=== PATIENT | male | born 1975 | race Caucasian/White ===

== ENCOUNTER 2021-02-07 13:30 | Emergency (ER) | payer SELFPAY ==
--- NOTE | ~2021-02-07 | XR_ITS ---
XR abdomen/kub 1V DATE: 02/07/2021 14:31 INDICATION: Left flank pain, distal left ureteral approximately 3 mm calculus TECHNIQUE: AP projection 2 views COMPARISON: 02/07/[address] abdomen pelvis FINDINGS: There is a subtle linear appearing calcification overlying the distal left ureter correspon ding to the distal left ureteral calculus documented on 02/07/[address] abdomen pelvis examin ation. Left nephromegaly. The psoas shadows are intact. No evidence of bowel obstruction. IMPRESSION: Distal left ureteral calcified calculus Reviewed, dictated and finalized at [facility] Reviewed, dictated and finalized at [facility].
--- NOTE | ~2021-02-07 | CT_ITS ---
EXAMINATION: CT abdomen pelvis wo con DATE: 02/07/2021 14:38 INDICATION: Right flank pain TECHNIQUE: Computed tomography (CT) of the abdomen and pelvis was performed without intravenous contr ast. Automated exposure control and iterative reconstruction technique were employed. Exam dose: 170 .33 mGy-cm total exam DLP. COMPARISON: November 27, [address] abdomen pelvis FINDINGS: Minimal focal atelectasis or scarring at the lung bases. Normal heart size. No pericardial or pleural effusion. Small sliding hiatal hernia. The liver, gallbladder, bile ducts, spleen, pancreas and pancreatic duct as well as adrenal glands ap pear normal. Right kidney appears normal. No right urinary tract calculus or hydroureteronephrosis. There is left nephromegaly and perinephric stranding and mild left hydroureteronephrosis due to an ap proximately 3 mm distal left ureteral calculus. Normal caliber of the abdominal aorta. No intraperitoneal or retroperitoneal or pelvic mass lesion or adenopathy or ascites. Normal appendix. No bowel obstruction, bowel wall thickening, pneumatosis or intraperitoneal free air . No suspicious osteolytic or osteoblastic lesions. IMPRESSION: 3 mm distal left ureteral calculus wit h mild left hydroureteronephrosis, mild perinephric stranding Reviewed, dictated and finalized at [facility] Reviewed, dictated and finalized at [facility].
[2021-02-07 13:37] VITALS: BP 143/90; PULSE 57; RESP 16; TEMP 36.2; O2SAT 98
[2021-02-07 13:57] LABS: Basophils Absolute Auto 0.1 K/mm3 (0.0-0.1); Basophils Percent Auto 0.4 % (0.2-1.2); Eosinophils Percent Auto 0.3 % (0-4.4); Hemoglobin 15.7 g/dL (14.0-18.0); Immature Granulocyte Absolute 0.04 K/mm3 (0.00-0.031); Immature Granulocyte Percent A 0.3 % (0-0.5); Lymphocytes Absolute Auto 1.31 K/mm3 (0.9-3.2); Lymphocytes Percent Auto 8.3 % (18.3-44.2); Mean Corpuscular HGB Conc 34.9 g/dl (32-36); Mean Corpuscular Hemoglobin 29.2 pg (26-34); Mean Corpuscular Volume 83.8 fl (80-100); Mean Platelet Volume 8.9 fl (7.4-10.4); Monocytes Percent Auto 6.2 % (2.6-8.5); Neutrophils Absolute Auto 13.4 K/mm3 (1.3-6.7); Neutrophils Percent Auto 84.5 % (45.5-73.1); Platelet Count Result 333 k/mm3 (150-375); Red Blood Count 5.37 M/mm3 (4.6-6.20); Red Cell Distribution Width 13.2 % (11.5-14.5); White Blood Count 15.8 K/mm3 (4.5-10.0)
[2021-02-07 14:07] LABS: Anion Gap 12 mmol/L (8-16); Blood Urea Nitrogen 12 mg/dL (9-20); Calcium 9.6 mg/dL (8.4-10.2); Carbon Dioxide 22 mmol/L (22-30); Chloride 108 mmol/L (98-107); Estimated CRCL calculation 74 ml/min; Estimated Glomerular Filt Rate > 60; Glucose 97 mg/dL (75-110); Potassium 3.5 mmol/L (3.4-5.0); Sodium 142 mmol/L (137-145)
[2021-02-07 14:13] LABS: Add Urine Microscopic? YES; Appearance Urine Clear (Clear); Bacteria Urine Trace /hpf; Bilirubin Urine Negative (Negative); Blood Urine Negative (Negative); Color Urine Yellow (Yellow); Glucose Urine UA Negative (Negative); Ketones Urine 2+ mg/dL (Negative); Leukocyte Esterase Ur Negative LEU/UL (Negative); Mucus Urine Rare /lpf; Nitrate Urine Negative (Negative); Protein Urine 2+ mg/dL (Negative); Specific Grav Ur 1.025 (1.001-1.035); Squamous Epithelial Cell Urine Rare /hpf (Few); Urobilinogen Urine Negative mg/dL (<2.0); WBC Urine 0-3 /hpf
[2021-02-07] MEDS: LACTATED RINGERS 1,000 ML 999 ML IV CONT (14:34)
[2021-02-07] MEDS: ONDANSETRON INJ 4 MG/2 ML VIAL IV PUSH (14:34)
--- NOTE | 2021-02-07 14:47 | ED.ABDPAIN ---
HPI - Abdominal Pain General Chief Complaint: Abdominal Pain Stated Complaint: kidney stones Time Seen by Provider: 02/07/21 13:46 Source: patient Mode of arrival: ambulatory Limitations: no limitations History of Present Illness HPI narrative: This is a 45 year old male with history of kidney stones who presents for evaluation of left lower abdominal pain. He states he developed pain to his left lower back and left lower abdomen 1 week ago. He states his pain has been intermittent. He noticed over the past couple of days his pain has been remaining in his left lower abdomen, and he is having nausea and vomiting. He has been taking naproxen for his pain. He denies having pain currently. He also denies urinary symptoms. Related Data Allergies Allergy/AdvReac Type Severity Reaction Status Date / Time No Known Allergies Allergy Verified 02/07/21 13:41 Review of Systems Review of Systems: All systems reviewed & are unremarkable except as noted in HPI and below PMFSH Past Medical History Medical History (Updated 02/07/21 @ 16:07 by Tanvi Plaza MD) History of eye prosthesis Kidney stones Surgical History Surgical History (Updated 02/07/21 @ 15:00 by Tanvi Plaza MD) No pertinent past surgical history Social History Social History (Updated 02/07/21 @ 15:00 by Tanvi Plaza MD) Smoking status: Current every day smoker Gender identity (if verbalized by the patient): Female Exam Const: General: no acute distress and alert Orientation/consciousness: patient oriented x3 Neck: Neck: normal visual inspection Resp: Effort & Inspection: normal respiratory effort and no retractions Auscultation: clear to auscultation bilaterally Cardio: Rate: regular rate Rhythm: regular rhythm Heart sounds: no murmurs GI: GI Palp: Yes Soft to palpation, No Tenderness to palpation present (GI) and No Guarding due to palpation present (GI) Auscultation: normal bowel sounds Skin: General skin exam: normal color Neuro: General: patient oriented x3, moves all extremities and CN's II-XI intact bilaterally Psych: Mental Status: mental status grossly normal Affect: normal affect Course Reevaluation(s) Reevaluation #1: I Discussed with patient that he found to have 3 mm stone that is distal. He will follow up with urologist as outpatient. He has no pain. Date: 05/01/21 Time: 16:04 Vital Signs Vital signs: Vital Signs Temperature 97.2 F L 02/07/21 13:37 Pulse Rate 57 L 02/07/21 13:37 Respiratory Rate 16 02/07/21 13:37 Blood Pressure 143/90 H 02/07/21 13:37 Pulse Oximetry 98 02/07/21 13:37 Temperature 97.2 F L 02/07/21 13:37 Pulse Rate 84 02/07/21 16:28 Respiratory Rate 16 02/07/21 16:28 Blood Pressure 142/84 H 02/07/21 16:28 Pulse Oximetry 98 02/07/21 16:28 MDM - Abdominal Pain Medical Records Attestation: I reviewed the patient's medical records. Lab Data Attestation: I reviewed the patient's lab results. Result diagrams: 02/07/21 13:53 02/07/21 13:53 Labs: Lab Results 02/07/21 02/07/21 02/07/21 Range/Units 13:53 13:53 13:59 WBC 15.8 H (4.5-10.0) K/mm3 RBC 5.37 (4.6-6.20) M/mm3 Hgb 15.7 (14.0-18.0) g/dL Hct 45.0 (42.0-52.0) % MCV 83.8 (80-100) fl MCH 29.2 (26-34) pg MCHC 34.9 (32-36) g/dl RDW 13.2 (11.5-14.5) % Plt Count 333 (150-375) k/mm3 MPV 8.9 (7.4-10.4) fl Immature Gran % (Auto) 0.3 (0-0.5) % Neut % (Auto) 84.5 H (45.5-73.1) % Lymph % (Auto) 8.3 L (18.3-44.2) % [place] % (Auto) 6.2 (2.6-8.5) % Eos % (Auto) 0.3 (0-4.4) % Baso % (Auto) 0.4 (0.2-1.2) % Lymph # (Auto) 1.31 (0.9-3.2) K/mm3 [place] # (Auto) 1.0 H (0.1-0.6) K/mm3 Eos # (Auto) 0.0 (0-0.3) K/mm3 Baso # (Auto) 0.1 (0.0-0.1) K/mm3 Abs Immat Gran (auto) 0.04 H (0.00-0.031) K/mm3 Absolute Neuts (auto) 13.4 H (1.3-6.7) K/mm3 Absolute Nucleated RBC
[2021-02-07] MEDS: TAMSULOSIN HCL 0.4 MG CAPSULE PO (15:16)
[2021-02-07 16:28] VITALS: BP 142/84; PULSE 84; RESP 16; O2SAT 98
== END 2021-02-07 16:29 | disposition home or self-care (01) ==
PROVIDERS: Family Medicine; Emergency Provider General Practice
DX: N13.2 Hydronephrosis with renal and ureteral calculous obstruction (principal); Z87.442 Personal history of urinary calculi
CPT/HCPCS: 36415; 74018; 74176; 80048; 81001; 85025; 96374; 99284; A9270; J2405; J7120

== ENCOUNTER 2021-09-18 08:11 | Emergency (ER) | payer SELFPAY ==
[2021-09-18 08:24] VITALS: BP 118/80; PULSE 92; RESP 16; TEMP 36.2; O2SAT 99
--- NOTE | 2021-09-18 08:58 | ED.GENADULT ---
HPI - General Adult General Chief complaint: Urogenital-Male Stated complaint: uti Source: patient Mode of arrival: ambulatory Limitations: no limitations History of Present Illness HPI narrative: Patient is a 45-year-old male who presents to the [facility] via POV for evaluation of penile drainage that has been present for 2 days. Additionally, he reports dysuria, and yellow thick, malodorous drainage. He states he has had 1 sexual partner over the past 3 months. He states he has 1 sexual partner. Denies wearing condoms with sexual activity. Denies taking OTC meds for symptoms. Nothing improves symptoms in urinating worsens symptoms. History of gonorrhea. Today symptoms are identical to previous infection. Last episode of gonorrhea was 2 years ago. Related Data Allergies Allergy/AdvReac Type Severity Reaction Status Date / Time No Known Allergies Allergy Verified 09/18/21 08:33 Review of Systems Review of Systems: pertinent negatives: fever, chills, sweats, change in appetite, poor p.o. intake, recent weight loss/gain, back pain, flank pain, hematuria, urinary frequency, urinary urgency, skin rash, rash on testes/groin/penis, pruritus, painful ejaculation, painful intercourse, lesions, abdominal pain, nausea, vomiting, diarrhea, constipation, shortness of breath, chest pain, heart palpitations, and heart murmur. PMFSH Past Medical History Medical History History of eye prosthesis Kidney stones Surgical History Surgical History No pertinent past surgical history Social History Social History Smoking status: Current every day smoker Gender identity (if verbalized by the patient): Female Comments I have reviewed and agree with the patient's past medical, surgical, social, and family hx as documented by the RN. There is no relevant family history pertinent to the presenting complaint. Exam Narrative: GENERAL: Well-appearing, well-nourished, and in no acute distress. HEAD: Normocephalic, atraumatic. NECK: Supple. No lymphadenopathy or nuchal rigidity. CHEST: Lung sounds are clear to auscultation in bilateral lung hanley. No respiratory distress. HEART: Regular rate and rhythm. No murmur, gallop, or rub heard. ABDOMEN: Soft, non-tender, non-distended, normal active bowel sounds in all quadrants. No guarding. No rebound tenderness. No pulsatile or palpable abdominal mass(es). No CVAT : Refused exam EXTREMITIES: Normal range of motion. No edema. SKIN: Warm, dry, no rash. No skin color changes. Excellent turgor. NEURO: No focal deficits. Alert and oriented x3. SPECIAL OBSERVATIONS: Smiling. Laughing. No evidence of discomfort. Course Vital Signs Vital signs: Vital Signs Temperature 97.1 F L 09/18/21 08:24 Pulse Rate 92 09/18/21 08:24 Respiratory Rate 16 09/18/21 08:24 Blood Pressure 118/80 09/18/21 08:24 Pulse Oximetry 99 09/18/21 08:24 Temperature 97.1 F L 09/18/21 08:24 Pulse Rate 92 09/18/21 08:24 Respiratory Rate 16 09/18/21 08:24 Blood Pressure 118/80 09/18/21 08:24 Pulse Oximetry 99 09/18/21 08:24 Medical Decision Making Differential Diagnosis Differential Diagnosis: Nephrolithiasis, urinary tract infection, pyelonephritis, frequency of micturition, dysuria, chlamydia, gonorrhea, trichomonas Medical Records Medical records reviewed: Yes I reviewed the external patient's medical records. Vital Signs Vital Signs: Vital Signs Temperature 97.1 F L 09/18/21 08:24 Pulse Rate 92 09/18/21 08:24 Respiratory Rate 16 09/18/21 08:24 Blood Pressure 118/80 09/18/21 08:24 Pulse Oximetry 99 09/18/21 08:24 Temperature 97.1 F L 09/18/21 08:24 Pulse Rate 92 09/18/21 08:24 Respiratory Rate 16 09/18/21 08:24 Blood Pressure 118/80 09/18/21 08:24 Pulse Oximetry
== END 2021-09-18 09:25 | disposition home or self-care (01) ==
PROVIDERS: Emergency Provider Nurse Practitioner Family
DX: R36.9 Urethral discharge, unspecified (principal); Z72.51 High risk heterosexual behavior; F17.200 Nicotine dependence, unspecified, uncomplicated; Z97.0 Presence of artificial eye
CPT/HCPCS: 87491; 87591; 99213; G0463